=== PATIENT | male | born 1970 | race Caucasian/White ===

== ENCOUNTER → 2017-09-30 | Outpatient (REF) | payer BC, OTHER ==
[2017-09-30 19:23] LABS: APPEARANCE, URINE CLEAR (CLEAR); BACTERIA, URINE AUTO NEGATIVE (NEGATIVE); BILIRUBIN, URINE AUTO NEGATIVE (NEGATIVE); BLOOD, URINE BLOOD NEGATIVE (NEGATIVE); COLOR, URINE YELLOW (YELLOW); GLUCOSE, URINE (UA) AUTO NEGATIVE (NEGATIVE); KETONE, URINE AUTO NEGATIVE (NEGATIVE); LEUKOCYTE ESTERASE, URINE AUTO NEGATIVE (NEGATIVE); NITRITE, URINE AUTO NEGATIVE (NEGATIVE); PROTEIN, URINE AUTO NEGATIVE (NEGATIVE); RBC, URINE AUTO 0 /HPF (0-3); SQUAMOUS EPITHELIAL CELL UR AU 0 /HPF (0-6); UROBILINOGEN, URINE AUTO 0.2 mg/dL (0.0-2.0); WBC, URINE AUTO 0 /HPF (0-3)
== END ==
LOC: M SMT 17:13
DX: R35.0 Frequency of micturition (principal)
CPT/HCPCS: 81001

== ENCOUNTER → 2017-09-30 | Outpatient (CLI) | payer BC, OTHER ==
[2017-09-30 20:19] LABS: PSA SCREENING 2.66 NG/ML (< 4.0)
== END ==
LOC: M WUC 16:31
DX: Z12.5 Encounter for screening for malignant neoplasm of prostate (principal)
CPT/HCPCS: G0103

== ENCOUNTER → 2017-11-06 | Outpatient (CLI) | payer BC, OTHER ==
[2017-11-09 00:08] LABS: PSA TOTAL 1.7 ng/mL (0.0-4.0)
== END ==
LOC: M SMT 13:46
DX: R97.20 Elevated prostate specific antigen [PSA] (principal)
CPT/HCPCS: 84154

== ENCOUNTER → 2020-02-23 | Outpatient (CLI) | payer BC, OTHER ==
[~2020-02-23] MED LIST: HUMI40IN2; METH2.5T48 PO
== END ==
LOC: M LABSMTC 10:07
PROVIDERS: ATTEND Anesthesiology
DX: Z01.818 Encounter for other preprocedural examination (principal)
CPT/HCPCS: C9803; U0002

== ENCOUNTER → 2020-02-23 | Outpatient (CLI) | payer BC, OTHER ==
[2020-02-23 10:50] LABS: HEMATOCRIT 46.8 % (42.0-52.0); PLATELET COUNT, AUTOMATED 270 10^3/uL (150-450); WHITE BLOOD COUNT 5.8 10^3/uL (4.0-10.0)
[2020-02-23 11:16] LABS: BLOOD UREA NITROGEN 11 MG/DL (7-18); CARBON DIOXIDE LEVEL 30 MEQ/L (21-32); CHLORIDE LEVEL 104 MEQ/L (98-107); CREATININE FOR GFR 0.99 MG/DL (0.70-1.30); GLOMERULAR FILTRATION RATE > 60.0 (>60); GLUCOSE, FASTING 81 MG/DL (70-100); POTASSIUM SERUM 4.6 MEQ/L (3.5-5.1); SODIUM LEVEL 139 MEQ/L (136-145)
== END ==
LOC: M LAB 09:43
PROVIDERS: ATTEND Orthopaedic Surgery
DX: Z01.812 Encounter for preprocedural laboratory examination (principal)

== ENCOUNTER 2020-02-24 13:40 | Day surgery (SDC) | payer BC, OTHER ==
[~2020-02-24] VITALS: Ht 170.2 cm; Wt 79.0 kg
[~2020-02-24 13:40] MED LIST changes: +ceFAZolin SOD 2 GM in IV 1 EA IV ONE
[2020-02-24] MEDS ORDERED: BUPIVACAINE HCL 0.5% 10ML VIAL As Ordered ONE (16:07)
[2020-02-24] MEDS ORDERED: MIDAZOLAM INJ 2MG/2ML VIAL (J2250 PER 1MG) As Ordered ONE (16:08)
[2020-02-24] MEDS ORDERED: fentaNYL 250 MCG/5 ML INJECTION (J3010) As Ordered ONE (16:08)
[2020-02-24] MEDS ORDERED: propofoL 200 MG/20 ML VIAL As Ordered ONE ×3 (16:08→19:00)
[2020-02-24] MEDS ORDERED: LIDOCAINE 2% 100MG/5ML SDV (FOR ANES.) As Ordered ONE (16:08)
[2020-02-24] MEDS ORDERED: ONDANSETRON 4MG/2ML VIAL As Ordered ONE (16:08)
[2020-02-24] MEDS ORDERED: dexameTHASONE 4 MG/ML 1ML VIAL (J1100 PER 1MG) As Ordered ONE (16:08)
[2020-02-24] MEDS ORDERED: ACETAMINOPHEN 1000MG 100ML IV BTL (OFIRMEV) (J0131 PER 10MG) As Ordered ONE (16:53)
[2020-02-24] MEDS ORDERED: BUPIVACAINE HCL 0.25% 30ML VIAL As Ordered ONE (16:55)
[2020-02-24] MEDS ORDERED: PERCOCET 5MG/325MG TAB As Ordered ONE (19:44)
[2020-02-24] MEDS ORDERED: fentaNYL 100 MCG/2 ML INJECTION (J3010) As Ordered ONE (19:44)
[2020-02-24] MEDS ORDERED: PERCOCET 5MG/325MG TAB PO PRN (20:15)
[2020-02-24] MEDS ORDERED: ONDANSETRON 4MG/2ML VIAL IV PRN (20:15)
[2020-02-24] MEDS ORDERED: LR 1,000 ML IV SCH ×2 (20:15)
[2020-02-24] MEDS ORDERED: METOCLOPRAMIDE INJ 10MG/2ML VIAL (J2765 PER 1) IV PRN (20:15)
[2020-02-24] MEDS ORDERED: MEPERIDINE INJ 25 MG/ML VIAL (J2175) IV PRN (20:15)
[2020-02-24] MEDS ORDERED: fentaNYL 100 MCG/2 ML INJECTION (J3010) IV PRN (20:15)
[2020-02-24] MEDS ORDERED: IBUPROFEN 800 MG TAB As Ordered ONE (20:22)
[2020-02-24] MEDS ORDERED: IBUPROFEN 800 MG TAB PO PRN (20:45)
[2020-02-24 21:30] VITALS: BP 144/90
--- NOTE | 2020-03-01 16:12 | RO ---
DATE OF SURGERY: 02/24/2020 PREOPERATIVE DIAGNOSES: 1. Right knee anterior cruciate ligament (ACL) rupture. 2. Right knee medial meniscus tear. POSTOPERATIVE DIAGNOSES: 1. Right knee anterior cruciate ligament rupture. 2. Right knee chondromalacia. PROCEDURE: 1. Right knee arthroscopic assisted [id number] anterior cruciate ligament reconstruction with autograft. 2. Right knee arthroscopic chondroplasty and synovectomy. SURGEON: Dr. Osvaldo Perea ARCHITECTURAL WOOD MODEL MAKER: Pastora Soler PA-C ANESTHESIA: General. IV FLUIDS: Lactated Ringer's. ESTIMATED BLOOD LOSS: 10 mL. IMPLANTS: Arthrex 7 x 23 PEEK Interference screw in the femur, Arthrex 9 x 28 mm PEEK Interference screw in the tibia. CLOSURE: Nylon. DESCRIPTION OF PROCEDURE: The patient was identified in the preoperative holding area and the right leg was marked. He was brought to the operating room and placed supine on a well-padded OR table. General anesthesia was induced. He had a Venodyne boot on the left lower extremity for deep venous thrombosis (DVT) rophylaxis. He received appropriate IV antibiotics within 1 hour of incision. An examination under anesthesia was performed revealing range of motion from zero to 135 degrees, stable to varus and valgus stress, grade 2 B Amaya and a positive pivot shift. Negative posterior drawer. No patellar instability. A well-padded tourniquet was applied the right thigh. A bump was placed under the right hip. The left leg was well padded with a reverse roll and a sandbag was taped to the bottom of the table. The right leg was then prepped and draped in normal sterile fashion with Chloraprep from the toes up to the tourniquet. Prior to incision, time-out was performed per hospital protocol. Pastora Soler was present for the entire procedure and participated in all essential portions of procedure. She assisted with preparing the graft by holding retractors, stabilizing the patella during graft harvest, stabilizing the graft when drilling holes through the graft and sizing it on the back table. She was also crucial for holding the arthroscope and stabilizing the knee during the drilling of tunnels, passage of the graft and placement of screws. The right leg was exsanguinated with an Esmarch bandage. The tourniquet inflated to 275 mmHg. A longitudinal incision was made with a #15 blade just medial to the midline from the distal pole of patella to the tibial tubercle. Full-thickness flaps were raised down to the peritenon with a fresh #15 blade. Peritenon was sharply incised and elevated off the patellar tendon for later repair. A #10 blade was then used to harvest the central one-third of the patellar tendon 10 mm in width. Bone blocks were harvested from the patella and tibia using a sagittal saw and osteotome. Two drill holes were made in each bone block. The bone block were sized to pass easily through a size 10 and bulleted to fit through a 9 at the tip. Excess bone was saved in the specimen cup for bone grafting of the patellar defect. #2 FiberWire was placed through each drill hole and the graft was secured in a moist gauze sponge on the back table. With the knee in 40 degrees of flexion the patellar tendon was repaired with #0 Vicryl suture in a [id number] fashion. A modified anterolateral portal was made with a #11 blade. A 30 degree arthroscope was introduced into the joint. Diagnostic arthroscopy was carried out revealing grade 1 chondromalacia in the patella, primarily grade 1 in the trochlea, a few areas of borderline grade 2. No unstable chondral flaps. There was diffuse synovitis. No loose bodies. Medial compartment was entered where the medial meniscus had some flounce but no obvious tearing. Grade 1 chondromalacia. The ACL had torn off the femur and was balled up on the tibia in the anterior compartment. The leg was brought to the [id number] position where there was some leading edge fraying of the lateral meniscus but no actual lateral meniscus tear and there was grade 1 chondromalacia. The anteromedial portal was localized with a spinal needle, and I should mention that prior to creating my portal there was what appeared to be a partial vertical tear in the anterior horn of the medial meniscus close to the junction of the intrameniscal ligament and the anterior horn. This was palpated with my spinal needle but prior to me making an incision medially. It is unclear if that is true pathology or not. So, then I carefully made an anteromedial portal one that we give the appropriate angle for drilling the femoral tunnel. On probing of the medial meniscus, including the root, there were no tears. Although the MRI was suggestive of a possible tear in medial meniscus, I was unable to identify a tear visually or probing. Suction was turned with the arthroscope and there was zero displacement of the meniscus. The shaver was then used to perform a chondroplasty to the lateral femoral condyle and perform a modest notchplasty. The stump of the ACL was debrided with the shaver. Radiofrequency cautery was used to release the remnant stump of the ACL off of the posterior cruciate ligament (PCL) to clear soft tissue out of the notch, clear soft tissue off the lateral femoral condyle and to ablate part the fat pad for improve visualization. The leg was brought to the [id number] position. There was no tearing of the lateral meniscus. An angled curette was used to josé the appropriate site for the femoral tunnel. An 8 mm [id number] guide was used and then I advanced a beef pin with the knee in hyperflexion out the lateral femoral condyle. A 10 mm low profile acorn reamer was then used to drill a femoral socket 25 mm in depth. The shaver was used to remove all bony debris. The PDS passing stitch was passed through the beef pin, advanced up the skin laterally and then protected for later passage of the graft. We then drilled our tibial tunnel. The FlipCutter guide was used and a guidepin was drilled, which entered the joint through the dry creek ACL fibers about 9 mm posterior to the intrameniscal ligament and centrally on the tibial plateau. The 10 mm reamer was then used to create the tibial tunnel. Soft tissue was cleared out at the aperture of the tibial tunnel to help prevent development of a cyclops lesion. The PDS passing sutures retrieved out the tibial tunnel and then our graft was passed into the joint via the PDS suture. Bone block was docked into the femoral tunnel and then the nitinol wire was passed between the bone block and tunnel anteriorly. A 7 mm tap was placed and then a 7 x 23 PEEK screw was placed over the nitinol wire with the knee in hyperflexion. This had excellent fixation. This positioned the graft posterior and inferior within the tunnel. The knee was brought into full extension. There was no notch impingement. The leg was now brought up into full extension on the OR table and four sterile bumps were placed behind the femoral condyles. Nitinol wire was placed between the tibial tunnel and bone block and there was no graft tunnel mismatch. With my medical assistant supervisor applying a posterior drawer of the tibial tubercle, I applied distal traction to the tibial bone block sutures and I advance a 9 x 28 mm PEEK Interference screw and this had excellent fixation. The screwdriver and nitinol wire were removed. The patient had full extension, flexion 120 degrees, grade 1 A Amaya. The arthroscope was placed back into the joint. The graft was probed and found to be under excellent tension. No loose bodies were seen. The knee joint was irrigated and drained. I then bone grafted the patellar harvest site. Periosteum was closed with #2-0 Vicryl suture. I then closed the peritenon with the knee in 40 degrees of flexion with a running #2-0 Vicryl. The knee was the re-irrigated. Subcuticular closure of #2-0 Vicryl, then a running #3-0 nylon. Tourniquet was let down at 2 hours 10 minutes and I injected 30 mL of 0.25% Marcaine without epinephrine. Bulky sterile dressing applied. He was carefully placed into the T scope hinged knee brace locked in extension. He was extubated, transferred to the postanesthesia care unit (PACU) in stable condition. All counts correct times two. Complications none. DISPOSITION: The patient will have full dose aspirin for DVT prophylaxis for 30 days starting postop day #1. He is weightbearing as tolerated with this hinged knee brace locked in extension. I explicitly instructed his that physical therapy must start in about 1 week. He will followup in 12-14 days for suture removal and then he will followup 2-3 weeks later for another post-op evaluation. This is Workmen's Compensation. He will be 100% temporary partial disability.
== END 2020-02-24 21:34 | disposition home or self-care (01) ==
LOC: M SDC 13:40
PROVIDERS: ATTEND Orthopaedic Surgery
DX: S83.511A Sprain of anterior cruciate ligament of right knee, initial encounter (principal); M94.261 Chondromalacia, right knee; X58.XXXA Exposure to other specified factors, initial encounter; Y92.89 Other specified places as the place of occurrence of the external cause; Y93.9 Activity, unspecified; Y99.9 Unspecified external cause status; Z88.2 Allergy status to sulfonamides
CPT/HCPCS: 29881; 29888; C1713; J0131; J0690; J1100; J2250; J2405; J3010